=== PATIENT | male | born 1975 | race Caucasian/White ===

== ENCOUNTER 2018-04-28 15:22 | Emergency (ER) | payer OTHER ==
[2018-04-28 15:45] VITALS: BP 109/74; PULSE 82; RESP 18; TEMP 98.6; O2SAT 99
[2018-04-28] MEDS ORDERED: Naproxen 500 MG TAB PO STA (15:52)
[2018-04-28] MEDS ORDERED: Naproxen 500 MG TAB PO ONE (15:56)
--- NOTE | 2018-04-28 15:58 | ED PDOC ---
HPI: General Adult Time Seen by Provider: 04/28/18 15:40 Chief Complaint (Nursing): Upper Extremity Problem/Injury Chief Complaint (Provider): Neck Pain History Per: Patient History/Exam Limitations: no limitations Onset/Duration Of Symptoms: Hrs (4x hours ) Current Symptoms Are (Timing): Still Present Severity: Moderate Additional Complaint(s): 42 year old male wit no pertinent past medical history presents to the ED for an evaluation of neck pain that started 4x hours ago. Patient reports that he was in [place] earlier today when he started experiencing neck pain. Patient reports that the pain worsens when he moves his neck around. Patient denies having any falls, injury to the neck, or taking medications for pain. PMD: None provided. Past Medical History Reviewed: Historical Data, Nursing Documentation, Vital Signs Vital Signs: Last Vital Signs Temp 98.6 F 04/28/18 15:42 Pulse 82 04/28/18 15:42 Resp 18 04/28/18 15:42 BP 109/74 04/28/18 15:42 Pulse Ox 99 04/28/18 15:42 FRANKIE Report Viewed: Yes - Medical History PMH: No Chronic Diseases - Family History Family History: States: No Known Family Hx - Social History Current smoker - smoking cessation education provided: Yes Alcohol: Social Drugs: Denies - Home Medications Home Medications: Ambulatory Orders Medication Instructions Recorded Naproxen 375 mg PO Q8 PRN #21 tablet 04/28/18 - Allergies Allergies/Adverse Reactions: Allergies Allergy/AdvReac Type Severity Reaction Status Date / Time No Known Allergies Allergy Verified 04/28/18 15:41 Review of Systems ROS Statement: Except As Marked, All Systems Reviewed And Found Negative Musculoskeletal: Positive for: Neck Pain Physical Exam - Reviewed Nursing Documentation Reviewed: Yes Vital Signs Reviewed: Yes - Physical Exam Appears: Positive for: Well, Non-toxic, No Acute Distress Head Exam: Positive for: ATRAUMATIC, NORMOCEPHALIC Skin: Positive for: Normal Color, Warm, Dry Neck: Negative for: Normal ((-) tenderness illicited. Patient notes pain with movement of neck. (-) nuchal rigidity noted) Neurologic/Psych: Positive for: Alert, Oriented (3x) - ECG O2 Sat by Pulse Oximetry: 99 (RA) Pulse Ox Interpretation: Normal - Progress ED Course And Treament: Naproxen 500mg x 1 dose Medical Decision Making Medical Decision Makin:40 Initial impression: 42 year old male with neck pain Patient is advised to follow up with PMD for an MRI scan. If pain persists, take naproxen for pain. Scribe Attestation: Documented byRadha Livingston, acting as a scribe for Natanael Smith PA-C. Provider Scribe Attestation: All medical record entries made by the Scribe were at my direction and personally dictated by me. I have reviewed the chart and agree that the record accurately reflects my personal performance of the history, physical exam, medical decision making, and the department course for this patient. I have also personally directed, reviewed, and agree with the discharge instructions and disposition. Disposition - Clinical Impression Clinical Impression: Neck muscle strain - Patient ED Disposition Is Patient to be Admitted: No - Disposition Referrals: [facility] [Outside] Disposition: Routine/Home Disposition Time: 16:43 Condition: FAIR Prescriptions: Naproxen 375 mg PO Q8 PRN #21 tablet PRN Reason: Pain, Moderate (4-7) Instructions: Neck Sprain (DC) Forms: [employer] (Swedish)
== END 2018-04-28 16:43 | disposition home or self-care (01) ==
LOC: H.ER 15:22
DX: M54.2 Cervicalgia (principal)